=== PATIENT | female | born 1975 | race Hispanic/Latino ===

== ENCOUNTER 2018-10-15 15:22 | Emergency (ER) | payer SELFPAY ==
[2018-10-15 15:53] LABS: #Eosinphils 0.1 thou/uL (0.0-0.7); #Lymphocytes 1.3 thou/uL (1.20-3.40); #Monocytes 0.3 thou/uL (0.11-0.59); #Neutrophils 3.6 thou/uL (1.40-6.50); %Basophils 0.6 % (0.0-1.0); %Eosinophils 2.5 % (0.0-10.0); %Lymphocytes 24.4 % (21.0-51.0); %Monocytes 5.6 % (0.0-10.0); Hemoglobin 12.9 g/dL (12.0-16.0); Mean Corpuscular HGB CONC 32.5 g/dL (32.0-36.0); Mean Corpuscular Hemoglobin 27.3 pg (27.0-31.0); Mean Corpuscular Volume 83.8 fL (78.0-98.0); Mean Platelet Volume 7.5 fL (7.4-10.4); Platelet Count 202 thou/uL (130-400); RBC Distribution Width 12.2 % (11.5-14.5); Red Blood Cell (RBC) Count 4.74 mill/uL (4.20-5.40); White Blood Cell (WBC) Count 5.4 thou/uL (4.8-10.8)
[2018-10-15 16:17] LABS: ALT (SGPT) Less than 7 U/L (8-55); AST (SGOT) 11 U/L (5-34); Albumin 4.1 g/dL (3.5-5.0); Alkaline Phosphatase 46 U/L (40-150); Anion Gap 10 mmol/L (10-20); BUN (Urea Nitrogen) 7 mg/dL (7.0-18.7); Bilirubin, Total 0.7 mg/dL (0.2-1.2); Calc. Creatinine Clearance 0 mL/min (70-130); Calcium 9.1 mg/dL (7.8-10.44); Carbon Dioxide 24 mmol/L (22-29); Chloride 103 mmol/L (98-107); Estimated GFR-MDRD Greater than 90; Globulin 2.8 g/dL (2.4-3.5); Glucose 134 mg/dL (70-105); Lipase 27 U/L (8-78); Potassium 3.8 mmol/L (3.5-5.1); Protein, Total 6.9 g/dL (6.0-8.3); Sodium 133 mmol/L (136-145)
--- NOTE | 2018-10-15 18:36 | ULT ---
ULTRASOUND LESS THAN 14 WEEKS: 10/15/18 HISTORY: Pelvic pain, patient is . Transabdominal and vascular duplex with color and spectral Doppler imaging is performed. Single viable intrauterine fetus is noted. heart rate 121 beats per minute. Yolk sac is present . There is a small subchorionic hemorrhage inferiorly. Right ovary is within normal limits. The left ovary is not demonstrated. [place]-rump length 0.7 cm equaling 6 weeks, 4 days. Gestational sac 2.4 cm equaling 7 weeks, 3 days. IMPRESSION: Overall gestational age average 7 weeks, 0 days with an EDC of 06/03/19. Small subchorionic hemorrhage . heart rate 121 beats per minute. POS: [facility]
== END 2018-10-15 18:23 | disposition home or self-care (01) ==
LOC: ERS 15:22
DX: O20.8 Other hemorrhage in early pregnancy (principal); O99.511 Diseases of the respiratory system complicating pregnancy, first trimester; J45.909 Unspecified asthma, uncomplicated; Z3A.01 Less than 8 weeks gestation of pregnancy; Z79.899 Other long term (current) drug therapy
CPT/HCPCS: 76856; 80053; 83690; 84702; 85025; 93976

== ENCOUNTER 2019-05-21 10:55 | Emergency (ER) | payer BC ==
[2019-05-21] MEDS ORDERED: Albuterol Sulfate 2.5 mg/0.5 ml Neb ONE ×2 (11:23→12:46)
[2019-05-21] MEDS ORDERED: predniSONE 20 MG TAB ONE ×2 (12:31→12:39)
== END 2019-05-21 13:40 | disposition home or self-care (01) ==
LOC: ERS 10:55
DX: O99.519 Diseases of the respiratory system complicating pregnancy, unspecified trimester (principal); J45.901 Unspecified asthma with (acute) exacerbation
CPT/HCPCS: 94640; J7512; J7611; J7620

== ENCOUNTER 2019-05-24 16:16 | Day surgery (SDC) | payer BC ==
[2019-05-24] MEDS ORDERED: hydrALAZINE 20 MG/ML VIAL SLOW IVP PRN (16:38)
--- NOTE | 2019-05-24 16:48 | PDOC.LDHP ---
Labor and Delivery H&P Chief complaint: decreased movement HPI: 43 y/o 38w5d, patient of Dr. Bernard, presents with decreased movement today. Also having some issues with her asthma and using albuterol inhaler. Is on Prednisone from exacerbation from last week. Denies VB, LOF, ctx , or other complaints. Has RLTCS scheduled for tomorrow. ROS neg for HEENT, cv, pulm, gi, gu, neuro, psych, skin, musculoskeletal or constitutional symptoms other than mentioned above. OB History Details: 1 prior term LTCS Current complications: other (polyhydramnios, AMA) Past Medical History: Asthma Current medications: pre-amanda vitamins, other (albuterol) Previous surgical history: low tranverse CS (x1) Allergies/Adverse Reactions: Allergies Allergy/AdvReac Type Severity Reaction Status Date / Time No Known Allergies Allergy Unverified 05/24/19 16:41 Social history: none - Physical Exam Vital signs reviewed and normal: yes General: NAD, resting Lungs: other (mild expiratory wheezes on right lung base) Abdomen: gravid Extremeties: no edema FHT: category 1 (130s, mod variability, + accels, no decels) [place] contractions every: occasional - Assessment 43 y/o at 38w5d with reactive NST. status reassuring. Given duoneb for wheezing and feeling much better. Wheezing resolved after neb. - Plan -: D/c home to return tomorrow for scheduled LTCS as scheduled.
[2019-05-24 17:16] VITALS: BP 110/66; TEMP 97.6; BMI 29.3
== END 2019-05-24 19:01 | disposition home health service (06) ==
LOC: L&D/OP 16:16
PROVIDERS: ATTEND Obstetrics & Gynecology
DX: O36.8130 Decreased fetal movements, third trimester, not applicable or unspecified (principal); O40.3XX0 Polyhydramnios, third trimester, not applicable or unspecified; O34.211 Maternal care for low transverse scar from previous cesarean delivery; O99.513 Diseases of the respiratory system complicating pregnancy, third trimester; J45.909 Unspecified asthma, uncomplicated; O09.523 Supervision of elderly multigravida, third trimester; Z3A.38 38 weeks gestation of pregnancy
CPT/HCPCS: 94640

== ENCOUNTER 2019-05-25 05:35 | Inpatient (IN) | payer BC ==
[2019-05-25] MEDS ORDERED: Promethazine HCl 25 MG/ML VIAL IM PRN ×3 (06:02→09:09)
[2019-05-25] MEDS ORDERED: hydrALAZINE 20 MG/ML VIAL SLOW IVP PRN ×2 (06:02→09:09)
[2019-05-25] MEDS ORDERED: Ondansetron PF 4 MG/2 ML Vial IVP PRN ×3 (06:02→09:09)
[2019-05-25 06:11] VITALS: BMI 29.1
[2019-05-25] MEDS ORDERED: Bicitra 30 ML UDCUP PO SCH (06:15)
[2019-05-25] MEDS ORDERED: CEFAZOLIN 2 GM in Premix Bag 1 BAG IVPB SCH (06:15)
[2019-05-25] MEDS ORDERED: FLU VACC QS2019-20(6MOS UP)/PF 60 MCG/0.5 ML SYRINGE IM ONE (06:30)
[2019-05-25 06:43] LABS: Mean Corpuscular HGB CONC 33.1 g/dL (32.0-36.0); Mean Corpuscular Hemoglobin 27.4 pg (27.0-31.0); Mean Corpuscular Volume 82.7 fL (78.0-98.0); Mean Platelet Volume 7.1 fL (7.4-10.4); Platelet Count 323 thou/uL (130-400); RBC Distribution Width 18.5 % (11.5-14.5); Red Blood Cell (RBC) Count 4.02 mill/uL (4.20-5.40); White Blood Cell (WBC) Count 7.2 thou/uL (4.8-10.8)
[2019-05-25 07:14] LABS: HBSAg Index 0.14 S/CO (0-0.99); Hep B Surf Ag Non-Reactive S/CO (NonReactive)
[2019-05-25 07:15] LABS: Syphilis Antibody Nonreactive (Nonreactive); Syphilis Antibody Index 0.07 S/CO (<1.00 Non-Reactive)
[2019-05-25] MEDS ORDERED: Oxytocin 10 UNITS/ML VIAL ONE (07:27)
[2019-05-25] MEDS ORDERED: PHENYLEPHRINE-NS 100 MCG/ML 10 ML SYRINGE ONE (07:27)
[2019-05-25] MEDS ORDERED: EPHEDRINE 25 MG/5 ML SYRINGE ONE (07:27)
[2019-05-25] MEDS ORDERED: MORPHINE 5 MG/10 ML PF VIAL ONE (08:09)
[2019-05-25] MEDS ORDERED: Ondansetron PF 4 MG/2 ML Vial ONE (08:10)
[2019-05-25] MEDS ORDERED: Ketorolac Tromethamine 30 MG/ML VIAL ONE (08:10)
[2019-05-25] MEDS ORDERED: L&D-Morphine 4 MG/ML VIAL SLOW IVP PRN (08:40)
[2019-05-25] MEDS ORDERED: HYDROmorphone 2 MG/ML VIAL SLOW IVP PRN (08:40)
[2019-05-25] MEDS ORDERED: Promethazine HCl 25 MG SUPP PR PRN (08:40)
[2019-05-25] MEDS ORDERED: Naloxone HCl 0.4 mg/ml Vial IVP PRN ×2 (08:40)
[2019-05-25] MEDS ORDERED: diphenhydrAMINE 50 MG/ML VIAL IVP PRN (08:40)
[2019-05-25] MEDS ORDERED: Meperidine HCl/PF 25 MG/ML VIAL SLOW IVP PRN (08:40)
[2019-05-25] MEDS ORDERED: Naloxone HCl 0.4 mg/ml Vial IV PRN (08:40)
[2019-05-25] MEDS ORDERED: Ondansetron HCl/PF 4 MG/2 ML Vial IVP PRN (08:40)
[2019-05-25] MEDS ORDERED: Ketorolac Tromethamine 30 MG/ML VIAL IVP SCH (08:45)
[2019-05-25] MEDS ORDERED: Communication Order-Pharmacy FS SCH (08:45)
[2019-05-25] MEDS ORDERED: Midazolam HCl 2 mg/2 ml Vial ONE (08:54)
[2019-05-25] MEDS ORDERED: Acetaminophen 325 MG TAB PO PRN (09:09)
[2019-05-25] MEDS ORDERED: Adacel (T-DAP) 0.5 ML SYRINGE IM ONE (09:09)
[2019-05-25] MEDS ORDERED: diphenhydrAMINE 25 MG CAP PO PRN (09:09)
[2019-05-25] MEDS ORDERED: Meperidine HCl/PF 25 MG/ML VIAL IM PRN (09:09)
[2019-05-25] MEDS ORDERED: Bisacodyl 10 MG SUPP PR PRN (09:09)
[2019-05-25] MEDS ORDERED: Zolpidem Tartrate 5 MG TAB PO PRN (09:09)
[2019-05-25] MEDS ORDERED: Simethicone Chewable 80 MG TAB PO PRN (09:09)
[2019-05-25] MEDS ORDERED: Lanolin Ointment 7 GM TUBE TOP PRN (09:09)
[2019-05-25] MEDS ORDERED: NS / Oxytocin 40 units/1000ml 1,000 ML ONE (10:37)
[2019-05-25] MEDS ORDERED: Lidocaine 1% (PF) 30 ML VIAL ONE (10:37)
--- NOTE | 2019-05-25 10:40 | PDOC.OPDEL ---
OB Operative/Delivery Note Delivery Dr/Surgeon: Joana Assist: TRINIDAD Pre-Delivery Diagnosis: scheduled section Procedure/Post Delivery Dx: repeat low transverse CS Weeks gestation: 39 Anesthesia: spinal - Findings A Sex: male Weight: 9 lb 7 oz - 1 min: 8 - 5 min: 9 - Additional Findings/Plan Placenta delivered: manual removal findings: low transverse hysterotomy without extension Estimated blood loss: 660 ml qbl Compilations/Other Findings: none Post delivery plan: routine recovery
[2019-05-25] MEDS ORDERED: Morphine 4 MG/ML VIAL ONE (10:41)
[2019-05-25] MEDS ORDERED: Morphine 4 MG/ML VIAL SLOW IVP SCH (11:00)
--- NOTE | 2019-05-25 12:05 | OP ---
DATE OF PROCEDURE: 05/25/2019 PREOPERATIVE DIAGNOSES: 1. A 43-year-old [place] female G3, P1, A1 at 39+ weeks. 2. Prior section. 3. History of asthma of recent exacerbation. POSTOPERATIVE DIAGNOSES: 1. A 43-year-old [place] female G3, P1, A1 at 39+ weeks. 2. Prior section. 3. History of asthma of recent exacerbation. PROCEDURE PERFORMED: Repeat low transverse section without extension. [employer] SURGEON: Rhoda Lord PA-C ANESTHESIA: Spinal block. ESTIMATED BLOOD LOSS: 650 mL. COMPLICATIONS: None. COUNTS: Correct x2. ANTIBIOTICS: 2 g Ancef on-call to OR. FINDINGS: 1. Vigorous male , Apgars 8 and 9. weight 4286 g or 9 pounds and 7 ounces. Clear amniotic fluid noted. 2. Normal-appearing fallopian tubes, uterus, and ovaries. DISPOSITION: Recovery room, stable. DESCRIPTION OF PROCEDURE: The patient previously received informed consent in regard to surgery. She had had some wheezing associated with recent asthma flare and was administered a nebulizer treatment prior to the surgery. Her lungs cleared and had normal O2 sats and therefore, we proceeded with a repeat low-transverse section. Spinal block was placed by Anesthesia. The patient was placed in supine position, prepped and draped in usual sterile fashion. A Florez catheter and SCDs had been placed. On insertion of the Florez catheter, the urine was noted to be some blood tinged discoloration and this was noted. A Pfannenstiel incision was made through the previous scar site. This was cut down to the fascia. Fascia was nicked in the midline. Fascial incision was extended bilaterally using curved Navarro scissors. The rectus fascia was then dissected superiorly and inferiorly off the rectus muscle bellies. The rectus muscle bellies were then divided in the midline and the peritoneal cavity was entered. The peritoneal incision was extended and Denys O retractor size large was placed. A bladder flap was created in usual fashion. A 2 cm hysterotomy incision was made in the lower uterine segment. This was extended via finger fractionation. The amniotic bag was ruptured with clear fluid noted. The baby was delivered in the vertex presentation. Mouth and nares of the infant were bulb suctioned on the abdomen. The cord was doubly clamped and cut and handed to the pediatric team in attendance. Usual cord blood was obtained and the placenta was manually extracted. The uterus was externalized to curette any remaining placental tissue from the uterine cavity. The hysterotomy incision was closed in running locking fashion in a double-layer closure with #1 Monocryl suture. Good hemostasis was noted. The uterus had been replaced back in the abdomen. Hysterotomy line again inspected. Hemostasis was confirmed. The rectus muscle bellies were inspected and noted to be hemostatic prior to fascial closure. The fascia was closed with 0 PDS suture x2 in a running continuous fashion. Subcutaneous tissue was irrigated, noted to be hemostatic and was approximated with a running 3-0 plain gut suture. Skin was closed with maris. The surgery was terminated with no anesthetic or surgical complications. Job ID: [id number]
[2019-05-25] MEDS: Albuterol Sulfate 2.5 mg/3 ml Neb NEB SCH ×3 (13:20→19:37)
[2019-05-25] MEDS: Ibuprofen 800 MG TAB PO SCH (15:26)
[2019-05-25] MEDS: Ketorolac Tromethamine 30 MG/ML VIAL IVP PRN ×2 (15:27→21:44)
[2019-05-25] MEDS: Docusate Calcium (SURFAK) 240 MG CAP PO SCH (21:44)
[2019-05-26] MEDS: Ketorolac Tromethamine 30 MG/ML VIAL IVP PRN (04:30)
[2019-05-26 06:31] LABS: Hemoglobin 9.6 g/dL (12.0-16.0); Mean Corpuscular HGB CONC 33.7 g/dL (32.0-36.0); Mean Corpuscular Hemoglobin 27.7 pg (27.0-31.0); Mean Corpuscular Volume 82.3 fL (78.0-98.0); Mean Platelet Volume 7.1 fL (7.4-10.4); Platelet Count 297 thou/uL (130-400); RBC Distribution Width 18.5 % (11.5-14.5); Red Blood Cell (RBC) Count 3.45 mill/uL (4.20-5.40); White Blood Cell (WBC) Count 9.4 thou/uL (4.8-10.8)
[2019-05-26] MEDS: Ferrous Sulfate 325 MG TAB PO SCH ×3 (06:48→21:37)
[2019-05-26] MEDS: Ibuprofen 800 MG TAB PO SCH ×3 (06:49→21:37)
--- NOTE | 2019-05-26 08:10 | PDOC.PP ---
Post Progress Note Post Day #: 1 PO intake tolerated: yes Flatus: yes Ambulation: yes Vital Signs (12 hours) Temp Pulse Resp BP Pulse Ox 05/26/19 05:30 20 05/26/19 04:15 98.3 F 86 20 93/52 L 95 05/26/19 02:00 18 05/26/19 00:00 98.6 F 87 18 91/53 L 96 05/25/19 22:00 20 Weight Weight 175 lb Result Diagrams: 05/26/19 06:07 Additional Labs: Post Labs Blood Type A POSITIVE 05/25/19 06:49 Hep Bs Antigen Non-Reactive S/CO (NonReactive) 05/25/19 06:32 - Assessment/Plan Post op day 1-repeat c/s. Doing well. Asthma improved. Routine care...
[2019-05-26] MEDS ORDERED: Mometasone 200 MCG HFA INHALER INH SCH (09:00)
[2019-05-26] MEDS: HYDROcodone/Acetaminophen 5/325 mg Tablet PO PRN ×4 (10:10→23:13)
[2019-05-26] MEDS: Prenatal Vitamin 1 TAB PO SCH (10:10)
[2019-05-26] MEDS: Docusate Calcium (SURFAK) 240 MG CAP PO SCH ×2 (10:10→21:37)
[2019-05-26] MEDS: Mometasone 200 MCG HFA INHALER INH SCH (20:14)
[2019-05-27] MEDS: HYDROcodone/Acetaminophen 5/325 mg Tablet PO PRN ×5 (04:32→23:00)
[2019-05-27] MEDS: Ibuprofen 800 MG TAB PO SCH ×3 (05:26→21:54)
[2019-05-27] MEDS: Prenatal Vitamin 1 TAB PO SCH (08:33)
[2019-05-27] MEDS: Ferrous Sulfate 325 MG TAB PO SCH ×2 (08:33→21:54)
[2019-05-27] MEDS: Docusate Calcium (SURFAK) 240 MG CAP PO SCH ×2 (08:33→21:54)
--- NOTE | 2019-05-27 08:55 | PDOC.PP ---
Post Progress Note Post Day #: 2 PO intake tolerated: yes Flatus: yes Ambulation: yes Vital Signs (12 hours) Temp Pulse Resp BP Pulse Ox 05/27/19 07:40 98.7 F 84 16 103/53 L 97 05/27/19 04:30 98.8 F 79 18 91/53 L 98 05/26/19 23:15 97.7 F 91 18 99/55 L 98 Weight Weight 175 lb Result Diagrams: 05/26/19 06:07 Additional Labs: Post Labs Blood Type A POSITIVE 05/25/19 06:49 Hep Bs Antigen Non-Reactive S/CO (NonReactive) 05/25/19 06:32 - Assessment/Plan Post day 2--doing well. discharge today and maris out pod 7 and 6 weeks.
[2019-05-27] MEDS: Mometasone 200 MCG HFA INHALER INH SCH ×2 (15:21→19:52)
[2019-05-28] MEDS: HYDROcodone/Acetaminophen 5/325 mg Tablet PO PRN ×3 (04:42→13:00)
[2019-05-28] MEDS: Ibuprofen 800 MG TAB PO SCH ×2 (04:42→12:59)
--- NOTE | 2019-05-28 06:10 | PDOC.PP ---
Post Progress Note Post Day #: POD#3 Subjective: Resting. DC held yesterday 2* to baby needing bili lights. PO intake tolerated: yes Vital Signs (12 hours) Temp Pulse Resp BP Pulse Ox 05/27/19 20:06 98.8 F 90 18 104/54 L 98 05/27/19 19:52 96 Weight Weight 79.379 kg - Physical Examination General: NAD Respiratory: non-labored breathing Abdominal: appropriately TTP Skin: CS incision dry & intact Neurological: no gross focal deficits Psychiatric: normal affect Result Diagrams: 05/26/19 06:07 Additional Labs: Post Labs Blood Type A POSITIVE 05/25/19 06:49 Hep Bs Antigen Non-Reactive S/CO (NonReactive) 05/25/19 06:32 - Assessment/Plan Doing well. DC home, f/u this week with Dr. Bernard for staple removal. Precautions reviewed.
[2019-05-28] MEDS: Prenatal Vitamin 1 TAB PO SCH (08:47)
[2019-05-28] MEDS: Docusate Calcium (SURFAK) 240 MG CAP PO SCH (08:47)
[2019-05-28] MEDS: Ferrous Sulfate 325 MG TAB PO SCH (08:47)
[2019-05-28 10:16] VITALS: BP 95/51; TEMP 98.7
== END 2019-05-28 15:33 | disposition home or self-care (01) | DRG 788 ==
LOC: L&D 05:35 → 3SW 12:31
PROVIDERS: ADMIT Obstetrics & Gynecology; ATTEND Obstetrics & Gynecology
PROC: 10D00Z1 Extraction of Products of Conception, Low, Open Approach (ICD-10-PCS; principal; 2019-05-25)
DX: O34.211 Maternal care for low transverse scar from previous cesarean delivery (principal); Z3A.39 39 weeks gestation of pregnancy; Z37.0 Single live birth; O99.513 Diseases of the respiratory system complicating pregnancy, third trimester; J45.909 Unspecified asthma, uncomplicated; Z79.51 Long term (current) use of inhaled steroids; Z79.52 Long term (current) use of systemic steroids
CPT/HCPCS: 36415; 51702; 85027; 86780; 86850; 86900; 86901; 87340; 94640; 99282; J0690; J1885; J2001; J2250; J2270; J2274; J2405; J2590; J7611